=== PATIENT | male | born 1995 | race Caucasian/White ===

== ENCOUNTER 2017-02-12 00:51 | Emergency (ER) | payer OTHER ==
--- OUTSIDE RECORDS SUMMARY | 2017-02-12 02:00 | XMS REPORT | Continuity of Care Document ---
:1995 Author Organization [facility] ([facility]) Address [place] [address] Phone [phone] Care Team Providers Name Role Phone Unavailable Primary Care Provider Unavailable Source Comments This disclosure is being made pursuant to the Care Everywhere program, applicable federal and state laws, and may not contain all informaitonavailable regarding this patient.[facility] ([facility]) Active Allergies and Adverse Reactions Not on File Current Medications Not on file Active Problems Not on file Immunizations Name Dates Previously Given Next Due Hepatitis B, unspecified 1995 Social History Tobacco Use Types Packs/Day Years Used Date Never Assessed Plan of Care Health Maintenance Due Date Last Done Comments Hepatitis B Vaccine (2 of 3 - Primary Series) 1996 1996 HPV Vaccine (1 of 3 - Male 3 Dose Series) 02/10/2007 Tdap Vaccine 02/10/2007 Meningococcal Vaccine (1 of 1) 2012 Lipid Disorder Screening 02/10/2014 MMR Vaccine 02/10/2014 Td Vaccine 02/10/2014 Varicella Vaccine (1 of 2 - Adult - No Evidence of 02/10/2014 Immunity) Influenza Vaccine: Seasonal (#1) 06/02/2016 Results from Last 3 Months Not on file
[2017-02-12] MEDS ORDERED: AMOXICILLIN TRIHYDRATE 250 MG CAPSULE PO ONE (02:01)
[2017-02-12] MEDS ORDERED: NAPROXEN SODIUM 550 MG TABLET PO ONE (02:02)
--- NOTE | 2017-02-12 02:06 | ERNOTE ---
ENT HPI Presenting Symptoms: dental pain Time Seen by Provider: 02/12/17 01:47 Source: patient Exam Limitations: no limitations - Immun/Allergies/Home Medications Immunizations: IMMUNIZATION HX Immunizations Up to Date Yes History of Influenza Vaccine Yes Hx Pneumococcal Vaccination No Allergies/Adverse Reactions: Allergies Allergy/AdvReac Type Severity Reaction Status Date / Time No Known Allergies Allergy Verified 02/12/17 01:07 Home Medications: HOME MEDICATIONS Lisdexamfetamine Dimesylate [Vyvanse] 20 mg PO DAILY 07/12/16 [Last Taken Unknown] cloNIDine [Catapres-Tts 1] 1 each TD DAILY 07/12/16 [Last Taken Unknown] Amoxicillin 875 mg PO BID #20 tablet 02/12/17 [Last Taken Unknown] Nabumetone 750 mg PO BID #20 tab 02/12/17 [Last Taken Unknown] - History of Present Illness Narrative: dental pain right lower premolar. Onset earlier today. Had previous episode 3 years ago Severity: Present: moderate ENT Location: Present: dental Prearrival Treatment: Present: no prearrival treatment Prior Treament: Reports: similar symptoms before Review of Systems - Review of Systems Constitutional: Absent: fever, chills ENT: Present: See HPI Respiratory: Present: no symptoms reported Cardiology: Present: no symptoms reported Gastrointestinal/Abdominal: Present: no symptoms reported Skin: Present: no symptoms reported Hematologic/Lymphatic: Absent: swollen glands - Patient's Past Medical History Patient History - Medical: ADHD, Anxiety, Depression Patient History - Cardiac/Respiratory: No pertinent hx Patient History - Cancer: No Hx of Cancer Patient History - Surgical Procedures: Other Patient History - Other: None - Social History Living Situations: home Abuse History: No History of abuse Psych History: No pertinent hx Smoking Status: Current every day smoker Alcohol Use: none Drug Use: none - Immunizations Immunizations Up to Date: Yes Hx Pneumococcal Vaccination: No History of Influenza Vaccine: Yes Physical Exam - Physical Exam General Appearance: Present: wd/wn, alert, no apparent distress Ears, Nose, Throat: Present: other - mild erythema around the right lower premolar Neck: Present: normal inspection, nontender. Absent: lymphadenopathy (R) Skin Exam: Present: normal color, warm/dry Lymphatic Exam: Present: no adenopathy ED Progress - Vital Signs Vital Signs: Vital Signs 02/12/17 01:02 Temperature 36.8 C Pulse Rate 94 Respiratory 20 Rate Blood Pressure 145/84 O2 Sat by Pulse 98 Oximetry - Progress/Reassessment Chief Complaint: Dental Problem Departure Clinical Impression: Dental abscess - Departure Disposition: Home self-care Condition: Good Instructions: Dental Abscess, [id number] Additional Instructions: Use dental wax on the tooth to help with the pain as well. follow up with a dentist if not improving Referrals: Debra Liz ARNP [Primary Care Provider] - Prescriptions: Amoxicillin 875 mg PO BID #20 tablet Nabumetone 750 mg PO BID #20 tab
[2017-02-12 02:56] VITALS: BP 142/78
== END 2017-02-12 02:18 | disposition home or self-care (01) ==
LOC: ER 00:51
DX: K04.7 Periapical abscess without sinus (principal); F17.200 Nicotine dependence, unspecified, uncomplicated